=== PATIENT | female | born 1975 | race African-American/Black ===

== ENCOUNTER 2016-12-11 11:22 | Inpatient (IN) | payer BC ==
[2016-12-11] VITALS (11 sets, daily range): BP systolic 131–160; BP diastolic 66–93
[~2016-12-11] VITALS: Ht 167.6 cm; Wt 113.9 kg
[2016-12-11 12:37] LABS: BASO # 0.1 x10^3/uL (0.0-0.2); BASO % 1 % (0-3); EOS % 1 % (0-3); HEMATOCRIT 39.2 % (36.0-47.0); HEMOGLOBIN 12.7 g/dL (12.0-15.5); LYMPH # 2.6 x10^3/uL (1.0-4.8); LYMPH % 36 % (24-48); MEAN CORPUSCULAR HEMOGLOBIN 28 pg (25-35); MEAN CORPUSCULAR HGB CONC 32 g/dL (31-37); MEAN CORPUSCULAR VOLUME 87 fL (79-100); MONO % 5 % (0-9); NEUT % 56 % (31-73); PLATELET COUNT 331 x10^3/uL (140-400); RED BLOOD COUNT 4.52 x10^6/uL (3.50-5.40); RED CELL DISTRIBUTION WIDTH 14.3 % (11.5-14.5); WHITE BLOOD COUNT 7.1 x10^3/uL (4.0-11.0)
[2016-12-11 12:39] LABS: BILIRUBIN,URINE NEGATIVE (NEG); GLUCOSE,URINE NEGATIVE (NEG); NITRITE,URINE NEGATIVE (NEG); PROTEIN,URINE NEGATIVE (NEG-TRACE); UROBILINOGEN,URINE 0.2 mg/dL (0.2 mg/dL)
[2016-12-11 12:49] LABS: BACTERIA,URINE 0 /HPF (0-FEW); RBC,URINE 0 /HPF (0-2); SQUAMOUS EPITHELIAL CELL,UR FEW /LPF; WBC,URINE OCC /HPF (0-4)
[2016-12-11 12:50] LABS: NEG OBC UR NEG; POS OBC UR POS
[2016-12-11 12:56] LABS: CALCIUM 9.7 mg/dL (8.5-10.1); CREATININE 0.7 mg/dL (0.6-1.0); GFR 112.7; POTASSIUM 3.3 mmol/L (3.5-5.1)
--- NOTE | 2016-12-11 13:02 | RAD ---
Left ventricle ultrasound, 12/11/2016: History: , pain Transabdominal scans were obtained. The uterus contains a single gestational sac. The gestational sac contains a pole demonstrating a crown-rump length of 2.2 cm. This is compatible with a gestational age of nearly 9 weeks. No cardiac activity is identified. This is abnormal with a pole of this size indicating a nonviable . The ovaries were not visualized. No adnexal mass is seen. No free fluid is evident in the pelvis. IMPRESSION: Nonviable intrauterine of approximately 9 weeks gestational age.
[2016-12-11] MEDS ORDERED: ONDANSETRON PF 4 MG/2 ML VIAL. IV PRN ×2 (13:30→14:45)
[2016-12-11] MEDS ORDERED: FENTANYL PF 100 MCG/2 ML VIAL. IV PRN ×2 (13:30→14:45)
--- NOTE | 2016-12-11 13:32 | PHYS DOC ---
Past Medical History Past Medical History: No Pertinent History Past Surgical History: Other Additional Past Surgical Histo: Surgery on bilateral ovarian cysts. Alcohol Use: None Drug Use: None Adult General Chief Complaint Chief Complaint: ABDOMINAL PAIN IN HPI HPI 41-year-old female with last menstrual period in August presents stating she thinks she is . She did have a positive home test. She states this morning she developed low abdominal discomfort. She denies any vaginal bleeding or discharge. She states the pain in her abdomen is been constant. No fever chills or sweats. No nausea or vomiting. [] Review of Systems Review of Systems Constitutional: Denies fever or chills [] Eyes: Denies change in visual acuity, redness, or eye pain [] HENT: Denies nasal congestion or sore throat [] Respiratory: Denies cough or shortness of breath [] Cardiovascular: No additional information not addressed in HPI [] GI: Per history of present illness [] : Denies dysuria or hematuria [] Musculoskeletal: Denies back pain or joint pain [] Integument: Denies rash or skin lesions [] Neurologic: Denies headache, focal weakness or sensory changes [] Endocrine: Denies polyuria or polydipsia [] Current Medications Current Medications Current Medications Medications (Trade) Dose Ordered Sig/Bharat Start Time Stop Time Status Last Admin Dose Admin Fentanyl Citrate 50 mcg 50 mcg PRN Q1HR PRN 12/11/16 13:30 12/12/16 13:29 Ondansetron HCl (Zofran) 4 mg PRN Q8HRS PRN 12/11/16 13:30 12/12/16 13:29 Sodium Chloride (Iv Sodium Chloride 0.9% 1000ml Bag) 1,000 ml @ 150 mls/hr Q6H40M 12/11/16 13:17 12/12/16 13:16 Allergies Allergies Allergies Coded Allergies Type Severity Reaction Last Updated Verified No Known Drug Allergies 12/11/16 No Physical Exam Physical Exam Constitutional: Well developed, well nourished, no acute distress, non-toxic appearance. [] HENT: Normocephalic, atraumatic, bilateral external ears normal, oropharynx moist, no oral exudates, nose normal. [] Eyes: PERRLA, EOMI, conjunctiva normal, no discharge. [] Neck: Normal range of motion, no tenderness, supple, no stridor. [] Cardiovascular:Heart rate regular rhythm, no murmur [] Lungs & Thorax: Bilateral breath sounds clear to auscultation [] Abdomen: Bowel sounds normal, soft, no tenderness, no masses, no pulsatile masses. [] Skin: Warm, dry, no erythema, no rash. [] Back: No tenderness, no CVA tenderness. [] Extremities: No tenderness, no cyanosis, no clubbing, ROM intact, no edema. [] Neurologic: Alert and oriented X 3, normal motor function, normal sensory function, no focal deficits noted. [] Psychologic: Affect normal, judgement normal, mood normal. [] Current Patient Data Vital Signs Vital Signs Date Time Temp Pulse Resp B/P Pulse Ox O2 Delivery O2 Flow Rate FiO2 12/11/16 11:50 99.1 78 18 167/79 98 Room Air 99.1 Lab Values Laboratory Tests Test 12/11/16 11:57 12/11/16 12:00 Urine Test Positive (NEG) White Blood Count 7.1x10^3/uL (4.0-11.0) Red Blood Count 4.52x10^6/uL (3.50-5.40) Hemoglobin 12.7g/dL (12.0-15.5) Hematocrit 39.2% (36.0-47.0) Mean Corpuscular Volume 87fL (79-100) Mean Corpuscular Hemoglobin 28pg (25-35) Mean Corpuscular Hemoglobin Concent 32g/dL (31-37) Red Cell Distribution Width 14.3% (11.5-14.5) Platelet Count 331x10^3/uL (140-400) Neutrophils (%) (Auto) 56% (31-73) Lymphocytes (%) (Auto) 36% (24-48) Monocytes (%) (Auto) 5% (0-9) Eosinophils (%) (Auto) 1% (0-3) Basophils (%) (Auto) 1% (0-3) Neutrophils # (Auto) 4.0x10^3uL (1.8-7.7) Lymphocytes # (Auto) 2.6x10^3/uL (1.0-4.8) Monocytes # (Auto) 0.4x10^3/uL (0.0-1.1) Eosinophils # (Auto) 0.1x10^3/uL (0.0-0.7) Basophils # (Auto) 0.1x10^3/uL (0.0-0.2) Urine Collection Type Void Urine Color Yellow Urine Clarity Clear Urine pH 7.0 Urine Specific [place] 1.020 Urine Protein Negativemg/dL (NEG-TRACE) Urine Glucose (UA) Negativemg/dL (NEG) Urine Ketones (Stick) Negativemg/dL (NEG) Urine Blood Negative (NEG) Urine Nitrite Negative (NEG) Urine Bilirubin Negative (NEG) Urine Urobilinogen Dipstick 0.2mg/dL (0.2 mg/dL) Urine Leukocyte Esterase Negative (NEG) Urine RBC 0/HPF (0-2) Urine WBC Occ/HPF (0-4) Urine Squamous Epithelial Cells Few/LPF Urine Bacteria 0/HPF (0-FEW) Maternal Serum HCG Beta Subunit 46670hAT/mL (0-6) H Sodium Level 141mmol/L (136-145) Potassium Level 3.3mmol/L (3.5-5.1) L Chloride Level 105mmol/L (98-107) Carbon Dioxide Level 25mmol/L (21-32) Anion Gap 11 (6-14) Blood Urea Nitrogen 8mg/dL (7-20) Creatinine 0.7mg/dL (0.6-1.0) Estimated GFR (Cockcroft-Gault) 112.7 Glucose Level 136mg/dL (70-99) H Calcium Level 9.7mg/dL (8.5-10.1) Laboratory Tests 12/11/16 12:00 Laboratory Tests 12/11/16 12:00 EKG EKG [] Radiology/Procedures Radiology/Procedures [] Course & Med Decision Making Course & Med Decision Making Pertinent Labs and Imaging studies reviewed. (See chart for details) [ED course: Evaluation revealed a 41-year-old female in mild distress secondary to low abdominal pain. Her ultrasound showed approximately 10 week demise. I spoke with Dr. Robertson our ESL PROFESSOR specialist who suggested admitting the patient and he will perform a D&C at approximate 5 PM today. She is in agreement with this plan.] Dragon Disclaimer Dragon Disclaimer This electronic medical record was generated, in whole or in part, using a voice recognition dictation system. Departure Departure Impression: Primary Impression: demise before 22 weeks with retention of fetus Disposition: 09 ADMITTED INPATIENT Admitting Physician: Other (Dr. Robertson) Condition: GUARDED Referrals: NO PCP (PCP) ESTRELLITA CUADRA DO Dec 11, 2016 13:31
[2016-12-11] MEDS: IV NORMAL SALINE 1000ML BAG 1,000 ML IV SCH ×2 (14:12→19:43)
[2016-12-11] MEDS ORDERED: HYDROMORPHONE 2 MG/ML VIAL. IV PRN (14:45)
[2016-12-11] MEDS ORDERED: PROCHLORPERAZINE 10 MG/2 ML VIAL. IV PRN (14:45)
[2016-12-11] MEDS ORDERED: MORPHINE SULFATE 2 MG/ML DISP.SYRIN. IV PRN (14:45)
[2016-12-11] MEDS ORDERED: LIDOCAINE 1% 1 ML SYRINGE. ID PRN (14:45)
[2016-12-11] MEDS ORDERED: IV RINGERS,LACTATED 1000ML 1,000 ML IV SCH (14:45)
[2016-12-11] MEDS ORDERED: OXYTOCIN 10 UNIT/ML VIAL. ONE (15:14)
[2016-12-11] MEDS ORDERED: MISOPROSTOL 200 MCG TABLET ONE ×5 (15:15→15:16)
[2016-12-11] MEDS ORDERED: DEXAMETHASONE SOD PHOS 20 MG/5 ML VIAL. ONE (16:52)
[2016-12-11] MEDS ORDERED: ONDANSETRON PF 4 MG/2 ML VIAL. ONE (16:52)
[2016-12-11] MEDS ORDERED: PROPOFOL 20 ML IV ONE (16:52)
[2016-12-11] MEDS ORDERED: LIDOCAINE 2% 100 MG/5 ML DISP.SYRIN. ONE (16:52)
--- NOTE | 2016-12-11 17:19 | ACF ---
Admission Forms Criteria OBSTETRIC AND GYNECOLOGIC DISEASE [facility] Clinical Indications for Admission to Inpatient Care (Place 'X' for any and all applicable criteria): Hospital admission is needed for appropriate care of the patient because of ANY ONE of the following (1)(2)(3): [ ]I. Hemodynamic instability, as indicated by ALL of the following (1)(2)(3)( 4)(5): [ ]a) Vital signs or other findings not as expected for chronic patient condition or baseline [ ]b) Instability indicated by ANY ONE of the following: [ ]i) Hypotension [ ]ii) Symptomatic tachycardia unresponsive to treatment (eg, analgesia, fluids, sedation as indicated) [ ]iii) Inadequate perfusion indicated by ANY ONE of the following: [ ]A. Lactic acidosis (greater than 2 mmol/ L) [ ]B. New abnormal capillary refill ( greater than 3 seconds) [ ]C. Reduced urine output [ ]D. New altered mental status [ ]iv) Orthostatic vital sign changes unresponsive to treatment (eg, fluids) [ ]v) Multiple IV fluid boluses required to maintain adequate blood pressure or perfusion [ ]vi) IV inotropic or vasopressor medication required to maintain adequate blood pressure or perfusion [ ]II. Obstetric infection requiring hospitalization indicated by ANY ONE of the following(13)(14): [ ]a) Chorioamnionitis [ ]b) Endometritis (except mild endometritis) [ ]c) Pelvic abscess [ ]d) Peritonitis [ ]e) Septic pelvic thrombophlebitis [ ]III. Amniotic fluid or pulmonary embolism(4)(5)(6) [ ]IV. Suspected peritonitis or ectopic requiring monitoring beyond scope of 24 hours or observation care(7)(8) [ ]V. compromise requiring hospitalization indicated by ALL of the following(9)(10): [ ]a) compromise indicated by ANY ONE of the following(11): [ ]i) Abnormal heart rate monitoring [ ]ii) Abnormal contraction stress test [ ]iii) Abnormal biophysical profile [ ]iv) Abnormal Doppler flow in vessels (ie, Doppler velocimetry) (12) [ ]b) Persistence of compromise indicators during evaluation and observation monitoring [ ]. Ovarian hyperstimulation syndrome requiring hospitalization[A] indicated by ALL of the following(15): [ ]a) Recent ovarian stimulation with gonadotropins, or evidence on ultrasound of spontaneous emergence of large number of ovarian follicles [ ]b) Evidence of severe ovarian hyperstimulation syndrome indicated by ANY ONE of the following: [ ]i) Abdominal pain unresponsive to oral therapy [ ]ii) Acute respiratory distress syndrome [ ]iii) Electrolyte imbalance ( eg, hyponatremia, hyperkalemia) [ ]iv) Elevated liver enzymes [ ]v) Evidence of thromboembolism [ ]vi) Hemoconcentration (hematocrit greater than 45 % (0.45)) [ ]vii) Inability to maintain oral intake adequate to prevent hemoconcentration [ ]viii) Marked hypotension from baseline (eg, SBP 20 mmHg below patients usual pressure) [ ]ix) Oliguria or anuria [ ]x) Ovarian torsion [ ]xi) Pleural or pericardial effusion on x-ray or echocardiogram [ ]xii) Rapid increase in serum creatinine to greater than 1.2 mg/dL (106 micromoles/L) or creatinine clearance less than 50 mL/min/1.73m2 (0.84 mL/ sec/1.73m2) [ ]xiii) Ruptured ovarian cyst with hemorrhage [ ]xiv) Severe abdominal pain or peritoneal signs [ ]xv) Tense ascites that cannot be managed with paracentesis in outpatient setting [ ]VII.Pelvic infection requiring hospitalization indicated by ANY ONE of the following (16): [ ]a) Outpatient treatment has failed or is not appropriate (eg, inpatient monitoring required) [ ]b) Pelvic abscess [ ]c) Surgical emergency cannot be excluded (eg, rigid abdomen) [ ]d) Vomiting precluding outpatient and observation care management [X]VIII. loss complications requiring inpatient medical treatment indicated by ANY ONE of the following (4)(7)(9): [ ]a) Fever [ ]b) Peritonitis [ ]c) Sepsis [X]d) Severe abdominal pain [ ]IX. or patient requiring monitoring for severe heart failure, pulmonary disease, or other comorbid condition (eg, peripartum cardiomyopathy) (4)(17) [ ]X. patient with rupture of membranes requiring hospitalization indicated by ANY ONE of the following: [ ]a) Chorioamnionitis, cloudy amniotic fluid, or other evidence of infection [ ]b) compromise or other need for monitoring (11) [ ]c) Gestation longer than 23 weeks and ANY ONE of the following: [ ]i) Abnormal (noncephalic) presentation [ ]ii) Inadequate home environment (eg, home too far from hospital, unable to rapidly return to hospital) [ ]d) Temperature greater than 100.4 degrees F (38 degrees C)( oral) [ ]e) Threatened labor requiring monitoring beyond scope (eg, over 24 hours) of observation Care [ ] XI. complications, including severe lacerations, infections, or retained placenta (19) [ ] XII.Uterine bleeding with high-risk features indicated by ANY ONE of the following (4): [ ]a) Active major hemorrhage (eg, hemorrhage) [ ]b) Coagulopathy with active bleeding [ ]c) Gestational trophoblastic disease (eg, molar ) (20 ) [ ]d) (longer than 23 weeks) and ANY ONE of the following: [ ]i) Pain [ ]ii) Placental abruption, known or suspected [ ]iii) Placenta accrete, known or suspected(21) [ ]iv) Placenta previa, known or suspected [ ]v) Vasa previa [ ]e) Severe anemia [ ]XIII. Obstetric or Gynecologic Disease, condition or symptom for which ANY ONE of the following: [ ]a) Emergency and observation care have failed or are not considered appropriate ( Also use General Criteria: Observation Care Criteria as appropriate) [ ]b) Presence of a General Admission Criteria or Pediatric General Admission Criteria The original [facility] content created by [facility] has been revised. The portions of the content which have been revised are identified through the use of italic text or in bold, and [facility] has neither reviewed nor approved the modified material.All other unmodified content is copyright [facility]. Please see references footnoted in the original [facility] edition 2016 Admission Criteria Met?: Yes CASSIDY LINK Dec 11, 2016 17:19
[2016-12-11] MEDS ORDERED: KETOROLAC 30 MG/ML SYRINGE FOR OR. INJ ONE (17:44)
[2016-12-11] MEDS ORDERED: DOXY-103 PO (17:52)
[2016-12-11] MEDS ORDERED: METH0.2T36 PO (17:52)
[2016-12-11] MEDS ORDERED: NAPR500T3 PO (17:52)
[2016-12-11] MEDS ORDERED: FENTANYL PF 100 MCG/2 ML VIAL. ONE (17:52)
[2016-12-11] MEDS ORDERED: HYDR-971 PO (17:52)
[2016-12-11] MEDS ORDERED: SEVOFLURANE 31 TO 60 MINUTES. IH ONE (18:03)
--- NOTE | 2016-12-11 18:03 | PDOC ---
BRIEF OPERATIVE NOTE Date: Dec 11, 2016 Pre-Op Diagnosis Incomplete AB Post-Op Diagnosis Same Procedure Performed Suction D and C Surgeon Yodit Ceramic Sprayer None Anesthesia Type: General Blood Loss 100cc Specimens Obtained POC Complications None MANOJ SANTANA MD Dec 11, 2016 18:03
[2016-12-11] MEDS: FENTANYL PF 100 MCG/2 ML VIAL. IV PRN ×3 (18:25→19:13)
[2016-12-11] MEDS ORDERED: HYDROCODONE/APAP 5/325MG TABLET. PO PRN ×2 (20:30)
[2016-12-11] MEDS ORDERED: NAPROXEN 500 MG TABLET PO PRN (20:30)
[2016-12-11] MEDS: LABETALOL HCL 100 MG TABLET PO SCH (21:00)
[2016-12-12 01:45] VITALS: BP 140/63
[2016-12-12 05:50] VITALS: BP 136/62
[2016-12-12] MEDS: LABETALOL HCL 100 MG TABLET PO SCH (08:39)
--- NOTE | 2016-12-12 14:02 | PDOC3 ---
OB DISCHARGE SUMMARY DATE OF ADMISSION: 12/11/16 DATE OF DISCHARGE: 12/12/16 REASON FOR ADMISSION: Other (incomplete AB) PROCEDURES: Ultrasound INTRAPARTUM PROCEDURES: Others (D and C) PROBLEM LIST AT DISCHARGE Problems Medical Problems: (1) demise before 22 weeks with retention of fetus Status: Acute DISCHARGE INFORMATION: Activity, Diet HOSPITAL COURSE unremarkable CONDITION AT DISCHARGE Stable MANOJ SANTANA MD Dec 12, 2016 14:02
--- NOTE | 2016-12-12 14:04 | PDOC1 ---
OB - History Hx of Present Care: None Ultrasounds: Abnormal US findings (incomplete Ab) Medical Complications: None Past Family/Social History * Past Medical, Surgical, Family and Obstetric Histories reviewed from chart. OB - Chief Complaint & HPI Date of Admission: Date of Admission: Dec 11, 2016 at 13:20 Chief Complaint/History : 1 Para: 0 EGA: 10weeks Reason for admission: vaginal bleeding Admission Nurse Assessment Rev: Yes Problems: OB - Admission Exam Physical Exam Vitals: VS - Last 72 Hours, by Label Date Time Temp Pulse Resp B/P Pulse Ox O2 Delivery O2 Flow Rate FiO2 12/12/16 08:39 78 12/12/16 05:50 98.4 61 18 136/62 99 Room Air 98.4 12/12/16 01:45 98.5 70 18 140/63 97 Room Air 98.5 12/11/16 23:30 99.0 74 20 144/85 97 Room Air 99.0 12/11/16 22:30 98.6 74 18 135/76 99 Nasal Cannula 2.0 98.6 12/11/16 21:30 65 158/83 98 Nasal Cannula 2.0 12/11/16 21:00 98.4 63 18 154/93 99 Nasal Cannula 2.0 98.4 12/11/16 21:00 61 151/89 12/11/16 20:30 57 160/87 98 Nasal Cannula 2.0 12/11/16 20:15 63 142/66 99 Nasal Cannula 2.0 12/11/16 20:00 98.4 61 16 151/78 99 Nasal Cannula 2.0 98.4 12/11/16 19:45 Nasal Cannula 2.0 12/11/16 19:45 60 156/87 98 Nasal Cannula 2.0 12/11/16 19:30 98.5 61 16 144/89 98 Nasal Cannula 2.0 98.5 12/11/16 19:13 96 Nasal Cannula 2.0 12/11/16 19:07 63 16 169/80 94 Room Air 12/11/16 19:03 93 Room Air 12/11/16 18:52 66 16 177/88 94 Room Air 12/11/16 18:37 99.0 64 14 172/91 94 Room Air 99.0 12/11/16 18:25 18 99 Simple Mask 10.0 12/11/16 18:22 70 18 178/80 100 Simple Mask 10 12/11/16 18:07 Mask 10 12/11/16 18:07 98.7 88 16 173/82 98 Simple Mask 10 98.7 12/11/16 17:06 100.7 66 20 161/65 98 Room Air 100.7 12/11/16 16:43 98.4 67 18 131/66 98 98.4 12/11/16 14:30 98.4 69 18 147/93 97 Room Air 98.4 12/11/16 14:10 85 18 167/88 97 Room Air 12/11/16 13:50 80 20 154/83 99 Room Air 12/11/16 12:50 74 19 163/86 97 Room Air 12/11/16 11:50 99.1 78 18 167/79 98 Room Air 99.1 HEENT: Normal, Nasal Mucosa Normal, Oropharynx Normal, Moist Membranes, Fontanelles Normal Heart: Regular Rate Lungs: Clear, Equal Abdomen: Gravid Extremities: Normal Pulses, No tenderness or swelling Reflexes: Normal Cervical Dilatation: None Effacement: 0% Assessment/Plan Assessment/Plan 10 week incomplete Ab Suction D and C MANOJ SANTANA MD Dec 12, 2016 14:04
[2016-12-12] MEDS ORDERED: LABE100T3 PO (14:27)
--- NOTE | 2016-12-13 13:25 | PATHOLOGY ---
PATHOLOGY REPORT * * * * * * * * FINAL DIAGNOSIS: Products of conception: - Products of conception, comprised of immature chorionic villi showing focal mild hydropic degenerative changes, and segments of decidual tissue and hypersecretory endometrium showing focal hemorrhage and acute inflammation. (JPM:; d/t: 12/13/16) REPORT ELECTRONICALLY SIGNED BY: Deon Millan M.D. DATE/TIME: 12/13/2016 13:23 * * * * * * * * GROSS PATHOLOGY: Received in formalin labeled "Maria Isabel Wu, products of conception," is an 8.6 x 7.6 x 1.5 cm aggregate of abundant blood clot admixed with spongiform, pink-davies tissue. tissue is not grossly identified. Vesicular structures are absent. [employer] tissue is submitted in cassette A1 through A3. (CAA; 12/12/2016) INITIAL CPT CODE(S): A; 77323 Professional services [place] [facility] [place] [address] Technical services performed by [facility] at [address] [place] [address]. SPECIMEN(S) RECEIVED: A.Products of conception CLINICAL HISTORY: demise @ 10 weeks PATIENT: MARIA ISABEL WU /AGE: 10 1975 (Age: 41) PATIENT #: [id number] ALT CASE #: SPECIMEN COLLECTION DATE: 12/11/2016 SPECIMEN RECEIVED DATE: 12/12/2016 [facility] - [address] [place] [address] - PHONE: [phone] * * * END OF REPORT * * *
== END 2016-12-12 15:21 | disposition home or self-care (01) | DRG 775 ==
LOC: ER 11:22 → 3 NORTH 13:20
PROVIDERS: ADMIT Specialist; ATTEND Specialist
PROC: 10D07Z8 Extraction of Products of Conception, Other, Via Natural or Artificial Opening (ICD-10-PCS; principal; 2016-12-11 17:20)
DX: O36.4XX0 Maternal care for intrauterine death, not applicable or unspecified (principal); Z37.1 Single stillbirth; Z3A.22 22 weeks gestation of pregnancy
CPT/HCPCS: 36415; 76801; 80048; 81001; 81025; 82947; 84702; 85027; 88305; C1888; J1100; J1885; J2405; J2590; J2704; J3010; J7030; 99285-25

== ENCOUNTER 2017-10-31 22:06 | Emergency (ER) | payer BC ==
[~2017-10-31] VITALS: Ht 167.6 cm; Wt 108.9 kg
[~2017-10-31 22:06] MED LIST: DOXY100T10 PO; HYDR-971 PO; LABE100T3 PO; METH0.2T36 PO; NAPR500T4 PO
[2017-10-31 22:13] VITALS: BP 154/76
--- NOTE | 2017-10-31 22:36 | PHYS DOC ---
Past Medical History Past Medical History: Asthma, Diabetes-Type II, Hypertension Past Surgical History: Other Additional Past Surgical Histo: Surgery on bilateral ovarian cysts, D&C Alcohol Use: None Drug Use: None Adult General Chief Complaint Chief Complaint: COUGH HPI HPI Patient is a 42 year old female who presents with complaint of cough, body aches, and chest congestion. Patient states her symptoms started suddenly today. Patient states that she has history of asthma and states that her symptoms have been exacerbating her asthma. Patient took albuterol at home with mild relief of symptoms. Patient denies any known fevers but states that she has felt "hot." Patient denies shortness of breath at this time. Patient states that she is having tightness across her chest which she attributes to her congestion. Patient denies any history of heart disease and is not a smoker. Patient states that she is feeling muscle aches in her legs which she took Aleve approximately 3 hours prior to arrival. Patient denies any known sick contacts. Review of Systems Review of Systems Constitutional: Subjective fever[] Eyes: Denies change in visual acuity, redness, or eye pain [] HENT: Denies nasal congestion or sore throat [] Respiratory: Cough, chest congestion[] Cardiovascular: Chest tightness, denies edema[] GI: Denies abdominal pain, nausea, vomiting, bloody stools or diarrhea [] : Denies dysuria or hematuria [] Musculoskeletal: Myalgias, denies back pain or joint pain [] Integument: Denies rash or skin lesions [] Neurologic: Denies headache, focal weakness or sensory changes [] All other systems were reviewed and found to be within normal limits, except as documented in this note. Current Medications Current Medications Current Medications Medications (Trade) Dose Ordered Sig/Bharat Start Time Stop Time Status Last Admin Dose Admin Albuterol/ Ipratropium (Duoneb) 3 ml 1X ONCE 10/31/17 23:00 10/31/17 23:01 DC Prednisone (Prednisone) 40 mg 1X ONCE 10/31/17 23:00 10/31/17 23:01 DC 10/31/17 22:38 40 MG Allergies Allergies Allergies Coded Allergies Type Severity Reaction Last Updated Verified No Known Drug Allergies 12/11/16 No Physical Exam Physical Exam Constitutional: Alert, afebrile, appears in mild discomfort. [] HENT: Normocephalic, atraumatic, bilateral external ears normal, oropharynx moist, no oral exudates, nose normal. [] Eyes: PERRLA, EOMI, conjunctiva normal, no discharge. [] Neck: Normal range of motion, no tenderness, supple, no stridor. [] Cardiovascular:Heart rate regular rhythm, no murmur [] Lungs & Thorax: Mildly restricted air movement bilaterally, no wheezes, no rales [] Abdomen: Bowel sounds normal, soft, no tenderness, no masses, no pulsatile masses. [] Skin: Warm, dry, no erythema, no rash. [] Back: No tenderness, no CVA tenderness. [] Extremities: No tenderness, no cyanosis, no clubbing, ROM intact, no edema. [] Neurologic: Alert and oriented X 3, normal motor function, normal sensory function, no focal deficits noted. [] Current Patient Data Vital Signs Vital Signs Date Time Temp Pulse Resp B/P (MAP) Pulse Ox O2 Delivery O2 Flow Rate FiO2 10/31/17 22:13 98.4 97 18 154/76 (102) 98 Room Air 98.4 Lab Values Laboratory Tests Test 10/31/17 22:57 Influenza Type A Antigen Negative (NEGATIVE) Influenza Type B Antigen Negative (NEGATIVE) EKG EKG EKG interpreted by me: Heart rate 98, sinus rhythm, leftward axis, no acute ST/T -wave abnormalities present[] Radiology/Procedures Radiology/Procedures Two-view chest x-ray interpreted by me: No infiltrates, no effusions, normal cardiac silhouette[] Course & Med Decision Making Course & Med Decision Making Pertinent Labs and Imaging studies reviewed. (See chart for details) Patient treated with albuterol and prednisone in the emergency department. The patient's influenza swab was negative, however patient's clinical symptoms are similar to possible influenza infection. I spoke with patient and we have agreed to consider initiation of Tamiflu therapy in addition to albuterol and prednisone for treatment of her asthma exacerbation. Advise follow-up in 5 days with primary doctor if symptoms are not improving and recommended return emergency department for any worsening symptoms. Patient voiced understanding and in agreement with treatment plan. Dragon Disclaimer Dragon Disclaimer This electronic medical record was generated, in whole or in part, using a voice recognition dictation system. Departure Departure Impression: Primary Impression: Upper respiratory infection Additional Impression: Asthma exacerbation Disposition: HOME, SELF-CARE Condition: IMPROVED Referrals: CALLIE SHAH MD (PCP) Patient Instructions: Asthma, Adult, Upper Respiratory Infection, Adult Additional Instructions: Follow-up to primary doctor in 5 days if symptoms are not improving. Return to emergency department for any worsening symptoms. Scripts Oseltamivir Phosphate (TAMIFLU) 75 Mg Capsule 1 CAP PO BID, #10 CAP Prov: MADELYN BERNARD MD 10/31/17 Prednisone (PREDNISONE) 20 Mg Tablet 1 TAB PO BID, #10 TAB Prov: MADELYN BERNARD MD 10/31/17 Problem Qualifiers Primary Impression: Upper respiratory infection URI type: unspecified URI Qualified Codes: J06.9 - Acute upper respiratory infection, unspecified Additional Impression: Asthma exacerbation Asthma severity: mild Asthma persistence: persistent Qualified Codes: J45.31 - Mild persistent asthma with (acute) exacerbation MADELYN BERNARD MD Oct 31, 2017 22:36
[2017-10-31] MEDS ORDERED: IPRATRPIUM/ALBUTEROL 0.5/2.5MG 3 ML NEBU. NEB ONE (23:00)
[2017-10-31] MEDS ORDERED: predniSONE 20 MG TABLET PO ONE (23:00)
[2017-10-31 23:22] LABS: OBC FLU VALID
[2017-10-31] MEDS ORDERED: OSEL75CA PO (23:26)
[2017-10-31] MEDS ORDERED: PRED20TA PO (23:26)
--- NOTE | 2017-11-01 07:06 | EKG ---
[facility] [address] [place] [address] Test Date: 2017-10-31 Test Time: 22:23:00 Pat Name: REJI WU Department: Room: Gender: F Counseling Program Leader: : 1975 Requested By: MADELYN BERNARD Order Number: [id number] Reading MD: Measurements Intervals [place] Rate: 97 P: 48 CT: 152 QRS: -4 QRSD: 94 T: 9 QT: 366 QTc: 469 Interpretive Statements SINUS RHYTHM LEFTWARD AXIS NON SPECIFIC T ABNORMALITY BORDERLINE ECG No previous ECG available for comparison
--- NOTE | 2017-11-01 08:19 | RAD ---
PA and lateral chest. History: Cough, pain from coughing PA and lateral views were taken of the chest. Lungs are clear. Heart is normal in size without heart failure. There is no pleural effusion. There is hypertrophic change in the spine. Impression: 1. No acute chest disease.
== END 2017-10-31 23:50 | disposition home or self-care (01) ==
LOC: ER 22:06
DX: J06.9 Acute upper respiratory infection, unspecified (principal); J45.30 Mild persistent asthma, uncomplicated; E11.9 Type 2 diabetes mellitus without complications; I10 Essential (primary) hypertension
CPT/HCPCS: 71020; 87804; 93005; 94640; 99285; J7512; J7620; 94250

== ENCOUNTER 2018-01-09 11:39 | Emergency (ER) | payer BC ==
[2018-01-09] MEDS: KETOROLAC 60 MG/2 ML INJ. IM ×2 (12:26)
== END 2018-01-09 13:03 | disposition home or self-care (01) ==
LOC: ER 11:39
DX: R07.89 Other chest pain (principal); R05 Cough; R09.81 Nasal congestion; J45.909 Unspecified asthma, uncomplicated; E11.9 Type 2 diabetes mellitus without complications; I10 Essential (primary) hypertension
CPT/HCPCS: 71046; 93005; 96372; 99284-25; J1885

== ENCOUNTER 2018-04-18 07:18 | Emergency (ER) | payer BC ==
[2018-04-18] MEDS: IBUPROFEN 800 MG TABLET. PO (08:09)
== END 2018-04-18 08:37 | disposition home or self-care (01) ==
LOC: ER 07:18
DX: S99.911A Unspecified injury of right ankle, initial encounter (principal); E11.9 Type 2 diabetes mellitus without complications; J45.909 Unspecified asthma, uncomplicated; I10 Essential (primary) hypertension; X50.1XXA Overexertion from prolonged static or awkward postures, initial encounter; Y93.89 Activity, other specified; Y92.89 Other specified places as the place of occurrence of the external cause; Y99.8 Other external cause status
CPT/HCPCS: 29515; 73610; 99284